=== PATIENT | male | born 1990 | race Caucasian/White ===

== ENCOUNTER 2017-09-24 07:52 | Emergency (ER) | payer MEDICAID ==
--- NOTE | 2017-09-24 08:12 | Emergency Department Record ---
History of Present Illness - General Chief Complaint: Arrythmia/Palpitations Stated Complaint: IRREGULAR HEART BEAT Time Seen by Provider: 09/24/17 07:57 Source: Patient Mode of Arrival: Ambulatory Limitations: No limitations - History of Present Illness Initial Comments: 27 yo male presents to ED for evaluation of "my heart beating hard", reports intermittent heart racing despite being put on blood pressure medication. Patient reports a history of HTN, denies previous heart or lung problems. Patient denies previous history of DVT, and denies calf pain or swelling. Patient reports that he is also concerned that is BP is elevated at home. MD Complaint: "Heart racing" Onset/Timin -: Days(s) - Related Data Allergies Allergy/AdvReac Type Severity Reaction Status Date / Time No Known Allergies Allergy Unverified 08/19/17 08:31 Travel Screening - Travel/Exposure Within Last 30 Days Have you traveled within the last 30 days?: No - Travel/Exposure Within Last Year Have you traveled outside the [place] in the last year?: No - Additonal Travel Details Have you been exposed to anyone with a communicable illness?: No - Travel Symptoms Symptom Screening: None Review of Systems Constitutional: Denies: Chills, Fever, Malaise Eyes: Denies: Eye discharge, Eye pain ENT: Denies: Congestion, Ear pain Respiratory: Denies: Cough, Dyspnea Cardiovascular: Reports: Palpitations. Denies: Chest pain, Dyspnea on exertion Endocrine: Reports: Fatigue. Denies: Heat or cold intolerance Gastrointestinal: Denies: Abdominal pain, Nausea, Vomiting Genitourinary: Denies: Incontinence, Retention Musculoskeletal: Denies: Arthralgia, Back pain Skin: Denies: Bruising, Change in color Neurological: Denies: Abnormal gait, Confusion, Headache, Seizure Psychiatric: Denies: Anxiety Hematological/Lymphatic: Denies: Anemia, Blood Clots Past Medical History - SOCIAL HISTORY Smoking Status: Never smoker Alcohol Use: None Drug Use: None - RESPIRATORY Hx Respiratory Disorders: No - CARDIOVASCULAR Hx Cardio Disorders: Yes Hx Hypertension: Yes - NEURO Hx Neuro Disorders: No - GI Hx GI Disorders: No - Hx Genitourinary Disorders: No - ENDOCRINE Hx Endocrine Disorders: No - MUSCULOSKELETAL Hx Musculoskeletal Disorders: No - PSYCH Hx Psych Problems: No Family Medical History Any Significant Family History?: No Hx HTN: Brother/Sister Physical Exam - General General Appearance: Alert, Oriented x3, Cooperative, Mild distress, Anxious Limitations: No limitations - Head Head exam: Atraumatic, Normocephalic, Normal inspection Head exam detail: negative: Abrasion, Contusion, Pena's sign, General tenderness, Hematoma, Laceration - Eye Eye exam: Normal appearance. negative: Conjunctival injection, Periorbital swelling, Periorbital tenderness, Scleral icterus - ENT Ear exam: negative: Auricular hematoma, Auricular trauma Nasal Exam: negative: Active bleeding, Discharge, Dried blood, Foreign body Mouth exam: negative: Drooling, Laceration, Muffled voice, Tongue elevation - Neck Neck exam: Normal inspection. negative: Meningismus, Tenderness - Respiratory Respiratory exam: Normal lung sounds bilaterally. negative: Rales, Respiratory distress, Rhonchi, Stridor - Cardiovascular Cardiovascular Exam: Regular rate, Normal rhythm, Normal heart sounds - GI/Abdominal GI/Abdominal exam: Soft. negative: Rebound, Rigid, Tenderness - Rectal Rectal exam: Deferred - exam: Deferred - Extremities Extremities exam: Normal inspection. negative: Calf tenderness, Pedal edema, Tenderness - Back Back exam: Denies: CVA tenderness (R), CVA tenderness (L) - Neurological Neurological exam: Alert, Normal gait, Oriented X3 - Psychiatric Psychiatric exam: Normal affect, Normal mood - Skin Skin exam: Normal color. negative: Abrasion Type of lesion: negative: abrasion Course Vital Signs 09/24/17 07:59 Temperature 97.6 F Pulse Rate 87 Respiratory 18 Rate Blood Pressure 190/126 Pulse Ox 99 - Reevaluation(s) Reevaluation #1: 09/24/17 08:12 EKG: NSR 89 Normal axis, normal intervals No acute ST-T wave changes Reevaluation #2: 09/24/17 08:38 Labs reviewed, potassium 3.1, labs are otherwise grossly unremarkable for an acute process. Patient was updated on all results, no arrhythmias noted while in the ED, and the patient appears stable for discharge at this time. Repeat BP 157/107 mmHg, 162/102mmHg, (down from initial BP 190/126). Medical Decision Making - Lab Data Result diagrams: 09/24/17 08:15 09/24/17 08:15 Disposition Disposition: Discharge Clinical Impression: Palpitations, Elevated blood pressure reading Disposition: Home, Self-Care Condition: (2) Stable Instructions: Heart Palpitations (ED) Additional Instructions: Return to ED if your symptoms worsen or if you have any concerns. Follow-up with your family doctor in 3-5 days as directed. Forms: Patient Portal Access Time of Disposition: 08:56 Quality - Quality Measures Quality Measures: N/A - Blood Pressure Screening Does Patient Have Any of the Following: Active Dx of HTN Blood Pressure Classification: Hypertensive Reading Systolic Measurement: 190 Diastolic Measurement: 126 Screening for High Blood Pressure: Patient Exclusion, Hx of HTN [[id number]]
[2017-09-24 08:20] LABS: BASO % 0.2 % (0-6); EOS % 2.5 % (0-6); GRAN % 57.1 % (47-80); HEMATOCRIT 46.5 % (42.0-52.0); HEMOGLOBIN 15.8 gm/dl (14.0-18.0); LYMPH % 33.1 % (16-45); MEAN CELL VOLUME 83.3 fl (81-97); MEAN CORPUSCULAR HEMOGLOBIN 28.3 pg (27-33); MEAN PLATELET VOLUME 10.3 fl (7.4-10.4); MONO % 7.1 % (0-9); PLATELET COUNT 238 K/uL (130-400); RED BLOOD COUNT 5.58 M/uL (4.40-5.70); WHITE BLOOD COUNT W/O DIFF 9.1 K/uL (4.2-12.2)
[2017-09-24 08:30] LABS: BLOOD UREA NITROGEN 9 mg/dL (6-20); CREATININE 0.7 mg/dL (0.7-1.2); EST GLOMERULAR FILTRATION RATE > 60 mL/min
[2017-09-24 08:31] LABS: TOTAL PROTEIN 6.7 g/dL (6.6-8.7)
[2017-09-24 08:33] LABS: GLUCOSE,RANDOM 97 mg/dL (74-109)
[2017-09-24 08:35] LABS: ALB/GLOB RATIO 1.8 (1.1-1.8); ALBUMIN 4.3 g/dL (4.0-5.0); ALKALINE PHOSPHATASE 82 U/L (40-129); ALT/SGPT 28 U/L (<41); AST/SGOT 21 U/L (10.0-50.0)
[2017-09-24] MEDS ORDERED: POTASSIUM BICARB./CIT AC 25 MEQ EFF.TAB PO STA (08:40)
== END 2017-09-24 09:03 | disposition home or self-care (01) ==
LOC: ER 07:52
DX: R00.2 Palpitations (principal); I10 Essential (primary) hypertension; R51 Headache
CPT/HCPCS: 80053; 85025; 93005; 93010; 99284